=== PATIENT | male | born 1945 ===

== ENCOUNTER → 2017-06-30 | Day surgery (SDC) | payer MEDICARE, MEDICAID ==
[~2017-06-30] VITALS: Ht 180.3 cm; Wt 89.8 kg
[2017-06-30] VITALS (8 sets, daily range): BP systolic 132–154; BP diastolic 67–87
[~2017-06-30] MED LIST: D5 1/2NS 1,000 ML IV SCH; DiphenhydrAMINE 50mg/ml Inj IVP PRN; HYDROmorphone 1mg/ml Carpuject SUBQ PRN; Hydromorphone 0.5mg/0.5ml inj IVP PRN; Iothalamate Meglumine 60% 30ML INJ ONE; Ketorolac 30mg Inj IV PRN; LR 1000ml 1,000 ML IVLG SCH; LR 1000ml ONE; Lidocaine 1% MPF 10mg/ml 5ml ONE; Midazolam 2mg/2ml Inj IVP PRN; Midazolam 2mg/2ml Inj ONE; NS Irrig 1000ml ONE; NS Irrig 4000ml IRRIG ONE; Norco 5mg/325mg tab ORAL PRN; Propofol 200mg/20ml IV ONE; RAPAFLO8 MG ORAL; Sterile Water Irrig 1000ml IRRIG ONE; Tylenol #3 tab (300mg/30mg) ORAL PRN; [UNRECOGNIZED DRUG - OTHER] PO; ceFAZolin sod 1 GM in D5W 55 ML IVPB ONE; fentaNYL 100 mcg/2 mL IV ONE
--- NOTE | 2017-06-30 14:12 | Anethesia Preoperative Eval ---
Anesthesia Pre-op PMH/ROS General Date of Evaluation: Jun 30, 2017 Anesthesiologist: Shiv ASA Score: ASA 3 Mallampati Score Class I : Soft palate, uvula, fauces, pillars visible Class II: Soft palate, uvula, fauces visible Class III: Soft palate, base of uvula visible Class IV: Only hard plate visible Mallampati Classification: Class II Surgeon: Vern Diagnosis: Right hydronephrosis Surgical Procedure: Right ESWL and ureteral stent exhange Anesthesia History: none Family History: no anesthesia problems Allergies: Coded Allergies: LEVOFLOXACIN (Verified Allergy, Intermediate, THROAT SWELLING, 06/30/17) Medications: see eMAR Past Medical History Cardiovascular: Reports: CAD - s/p 2 stents 6 years ago, denies cp/sob; MET>4, Denies: HTN, [place], valve dz, arrhythmia, other Pulmonary: Denies: asthma, COPD, HECTOR, other Gastrointestinal/Genitourinary: Reports: other - BPH, Denies: GERD, CRI, ESRD Neurologic/Psychiatric: Denies: dementia, CVA, depression/anxiety, TIA, other Endocrine: Denies: DM, hypothyroidism, steroids, other HEENT: Denies: cataract (L), cataract (R), glaucoma, EKLUTNA (L), EKLUTNA (R), other Hematology/Immune: Denies: anemia, DVT, bleeding disorder, other Musculoskeletal/Integumentary: Denies: OA, RA, DJD, DDD, edema, other PSxH Narrative: Right j-stent placement, lithotripsy Anesthesia Pre-op Phys. Exam Physician Exam Last Vital Signs Date Time Temp Pulse Resp B/P (MAP) Pulse Ox O2 Delivery O2 Flow Rate FiO2 06/30/17 12:40 97.2 66 20 154/77 97 Room Air Constitutional: NAD Cardiovascular: RRR Respiratory: CTA Airway Exam Mallampati Score: Class II MO: full ROM: full Teeth: missing, intact Anesthesia Pre-op A/P Labs see chart Studies Pre-op Studies: EKG - sr Risk Assessment & Plan Assessment: ASA III Plan: GA Status Change Before Surgery: No Pre-Antibiotics Drug: LEILANI PRABHAKAR M.D. Jun 30, 2017 14:12
--- NOTE | 2017-06-30 14:30 | Diagnostic Imaging Report ---
Indication: Cough Technique: One view of the chest Comparison: none Findings: Lungs and pleural spaces are clear. Heart size is normal. The aorta is slightly elongated and calcified Impression: No acute process
--- NOTE | 2017-06-30 16:08 | Pre-Procedure Note/Attestation ---
Pre-Procedure Note/Attestation Complete Prior to Procedure Planned Procedure: right Procedure Narrative: ESWL RIRS Right Indications for Procedure Pre-Operative Diagnosis: right ureteral stone Attestation I attest that I discussed the nature of the procedure; its benefits; risks and complications; and alternatives (and the risks and benefits of such alternatives ), prior to the procedure, with the patient (or the patient's legal group sales representative). I attest that, if there was a reasonable possibility of needing a blood transfusion, the patient (or the patient's legal group sales representative) was given the [facility] standardized written summary, pursuant to the Gabriel Radha Blood Safety Act ([place] Health and Safety Code # 1645, as amended). I attest that I re-evaluated the patient just prior to the surgery and that there has been no change in the patient's H&P, except as documented below: Erik Porras MD Jun 30, 2017 16:08
--- NOTE | 2017-06-30 16:09 | Brief Operative Note ---
Immediate Post Operative Note Operative Note Pre-op Diagnosis: right ureteral stone Procedure: RIRS ESWL right ureteral stone Post-op Diagnosis: same Post-op Diagnosis: same as pre-op Surgeon: Chung Porras Anesthesia: general Specimen: yes Complications: none Condition: stable Fluids: 500 Estimated Blood Loss: minimal Drains: other Implant(s) used?: No Erik Porras MD Jun 30, 2017 16:09
--- NOTE | 2017-06-30 16:15 | Immediate Post-Op Evaluation ---
Immediate Post-Op Evalulation Immediate Post-Op Evalulation Procedure: Cysto, Lithotrypsy ECWL stent placement Date of Evaluation: Jun 30, 2017 Time of Evaluation: 16:14 IV Fluids: 800 Blood Products: none Estimated Blood Loss: 50 Urinary Output: N/A Blood Pressure Systolic: 148 Blood Pressure Diastolic: 74 Pulse Rate: 68 Respiratory Rate: 20 O2 Sat by Pulse Oximetry: 98 Temperature (Fahrenheit): 97.6 Pain Score (1-10): 2 Nausea: No Vomiting: No Complications none Patient Status: reacts, patent, none Hydration Status: adequate VINNY WHITFIELD M.D. Jun 30, 2017 16:15
--- NOTE | 2017-07-05 21:01 | Operative Note - Dictated ---
DATE OF OPERATION: 07/05/2017 PREOPERATIVE DIAGNOSES: 1. Retained double-J stent, one week. 2. Right ureteral stone with hydronephrosis. POSTOPERATIVE DIAGNOSES: 1. Retained double-J stent, one week. 2. Right ureteral stone with hydronephrosis. OPERATION: 1. Retrograde intrarenal surgery with laser lithotripsy of the right ureteral stone. 2. Extracorporeal shockwave lithotripsy at the renal fragments. 3. Placement of double-J stent. SURGEON: Erik Porras M.D. ANESTHESIA: General FINDINGS: Large right distal ureteral stone. INDICATIONS FOR SURGERY: The patient was treated in the outside hospital with acute renal colic and infection, he finished the antibiotics. CT urogram showed a possible residual stone in the right ureter. Treatment options were explained to him in great length including all potential complications. He signed a consent. DESCRIPTION OF PROCEDURE: He was brought to the operating room, placed in lithotomy position, prepped and draped in the standard fashion under general anesthesia. Cystoscope was introduced into the bladder. Right ureter was cannulated and a semi-rigid ureteroscope was introduced into the mid ureter where the stone was found embedded into the ureter. Using 200 micron fiber, the stone was fragmented into small pieces. Some of the pieces migrated back into the kidney and using extracorporeal shockwave lithotripsy and 700 shocks with 8 stones were further fragmented into small fragments. Retrograde showed normal collecting system. A double-J stent was placed and left indwelling in the collecting system with the right kidney and the bladder. Rivera catheter was placed. Procedure was terminated. Sponge count and instrument count was correct. The patient tolerated procedure well. No evidence of complication. Erik Porras M.D. DR: Judi JOB#: [id number] CC:
[2017-07-06 15:29] VITALS: BP 148/78
--- NOTE | 2017-07-06 15:29 | 48 Hour Post Anesthesia Eval ---
Post Anesthesia Evaluation Procedure: Cysto, Lithotrypsy ECWL stent placement Date of Evaluation: Jun 30, 2017 Time of Evaluation: 12:20 Blood Pressure Systolic: 148 0: 78 Pulse Rate: 76 Respiratory Rate: 20 Temperature (Fahrenheit): 97.6 O2 Sat by Pulse Oximetry: 98 Airway: patent Nausea: No Vomiting: No Pain Intensity: 2 Hydration Status: adequate Cardiopulmonary Status: stable Mental Status/LOC: patient returned to baseline Follow-up Care/Observations: n/a Post-Anesthesia Complications: none Follow-up care needed: ready to discharge VINNY WHITFIELD M.D. Jul 06, 2017 15:29
== END | disposition home or self-care (01) ==
LOC: MERGE 11:42 → SUR 11:42
DX: N20.1 Calculus of ureter (principal); I25.10 Atherosclerotic heart disease of native coronary artery without angina pectoris; I10 Essential (primary) hypertension; Z95.5 Presence of coronary angioplasty implant and graft
CPT/HCPCS: 50590; 52332; 71010; J0690; J1940; J2250; J2405; J2704; J3010; J7120; Q9961; 94003; 94150